=== PATIENT | male | born 1935 | race Caucasian/White ===

== ENCOUNTER 2023-09-24 12:46 | Outpatient (RCR) | payer MEDICARE, SELFPAY | END 2023-12-07 09:00 | disposition short-term general hospital (02) | LOC: HO.WCC 12:46 | PROVIDERS: PCP Pediatrics; Visit Provider Surgery | DX: E11.621 Type 2 diabetes mellitus with foot ulcer (principal); L89.620 Pressure ulcer of left heel, unstageable; L89.610 Pressure ulcer of right heel, unstageable; E11.40 Type 2 diabetes mellitus with diabetic neuropathy, unspecified; E11.52 Type 2 diabetes mellitus with diabetic peripheral angiopathy with gangrene; I96 Gangrene, not elsewhere classified; I11.0 Hypertensive heart disease with heart failure; I50.9 Heart failure, unspecified; Z87.891 Personal history of nicotine dependence | CPT/HCPCS: 11042; 99214 ==